=== PATIENT | female | born 1950 | race Caucasian/White ===

== ENCOUNTER 2018-05-02 08:22 | Outpatient (CLI) | payer MEDICARE, BC ==
[2015-10-03 10:19] VITALS: O2SAT 99
== END 2018-05-02 08:23 | disposition home or self-care (01) | DRG 556 ==
LOC: CONVCARE 08:22
PROVIDERS: ATTEND Orthopaedic Surgery
DX: M25.561 Pain in right knee (principal); M17.11 Unilateral primary osteoarthritis, right knee
CPT/HCPCS: 73564

== ENCOUNTER 2018-06-24 15:50 | Emergency (ER) | payer MEDICARE, BC ==
[2018-06-24 16:13] VITALS: TEMP 97.4
[2018-06-24 16:24] LABS: BASOPHILS % (AUTO) 1 % (0-3); EOSINOPHILS % (AUTO) 3 % (0-9); HEMATOCRIT 41 % (35-47); HEMOGLOBIN 13.1 gm/dl (12.0-15.5); LYMPHOCYTES % (AUTO) 17.6 % (10-50); MEAN CORPUSCULAR HEMOGLOBIN 29.7 pg (27.0-32.0); MEAN CORPUSCULAR HGB CONC 31.7 gm/dl (32.0-36.0); MEAN CORPUSCULAR VOLUME 94 fL (81-99); MONOCYTES % (AUTO) 6.2 % (0-12); NEUTROPHILS % (AUTO) 72.1 % (37-80)
[2018-06-24 16:35] LABS: INR 0.99 (0.86-1.12)
[2018-06-24 16:37] LABS: ALBUMIN 3.7 gm/dl (3.4-5.0); BILIRUBIN,TOTAL 0.7 mg/dl (0.2-1.0); CALCIUM 8.8 mg/dl (8.5-10.1); CARBON DIOXIDE 29.4 mEq/L (21-32); CREATININE 0.76 mg/dl (0.60-1.00); POTASSIUM 3.6 mMol/L (3.5-5.1); TOTAL PROTEIN 6.6 gm/dl (6.4-8.2)
[2018-06-24 17:53] VITALS: BP 188/102; PULSE 68; RESP 16; O2SAT 97
== END 2018-06-24 17:35 | disposition home or self-care (01) | DRG 151 ==
LOC: ED 15:50
DX: R04.0 Epistaxis (principal); S00.83XA Contusion of other part of head, initial encounter
CPT/HCPCS: 70450; 70486; 80053; 85025; 85610; 99284; G0390